=== PATIENT | male | born 1975 | race Caucasian/White ===

== ENCOUNTER 2016-10-22 18:06 | Emergency (ER) | payer OTHER ==
[~2016-10-22] VITALS: Ht 172.7 cm; Wt 74.6 kg
[2016-10-22] MEDS ORDERED: ASPIRIN 81 MG TABLET CHEW ONE (18:55)
[2016-10-22] MEDS ORDERED: SODIUM CHLORIDE FLUSH 10ML SYR IVF ONE (19:00)
[2016-10-22] MEDS ORDERED: SODIUM CHLORIDE 0.9% 1,000ML IVBOLUS ONE (19:00)
[2016-10-22] MEDS ORDERED: ASPIRIN 81 MG TABLET CHEW PO ONE (19:00)
[2016-10-22 19:16] LABS: BLOOD UREA NITROGEN 9 mg/dL (7-18)
[2016-10-22 19:22] LABS: IS PT STATUS REG ER OR PRE ER? YES
[2016-10-22] MEDS ORDERED: LORazepam 2 MG/ML, 1ML ONE (19:28)
[2016-10-22] MEDS ORDERED: LORazepam 2 MG/ML, 1ML IVPush ONE (19:30)
[2016-10-22 21:50] VITALS: BP 127/70
== END 2016-10-22 21:53 | disposition home or self-care (01) ==
LOC: ED 21:47
DX: F41.9 Anxiety disorder, unspecified (principal); R07.89 Other chest pain; I10 Essential (primary) hypertension; Z72.9 Problem related to lifestyle, unspecified; Z75.8 Other problems related to medical facilities and other health care; Z91.14 Patient's other noncompliance with medication regimen; Z59.0 Homelessness
CPT/HCPCS: 36415; 71010; 80048; 82040; 84484; 85025; 93005; 96361; 96374; 99285; J2060; J7030